=== PATIENT | female | born 1985 | race Caucasian/White ===

== ENCOUNTER 2016-09-19 09:26 | Outpatient (CLI) | payer MEDICAID ==
[~2016-09-19] VITALS: Ht 172.7 cm; Wt 83.2 kg
[~2016-09-19 09:26] MED LIST: BIRTH CONTROL
[2016-09-19 10:09] VITALS: BP 120/79
[2016-09-19] MEDS ORDERED: PREN1TAB25 PO (10:23)
== END 2016-09-19 10:42 | disposition home or self-care (01) ==
LOC: LDOP 09:26
PROVIDERS: ATTEND Obstetrics & Gynecology
DX: O26.893 Other specified pregnancy related conditions, third trimester (principal); R10.9 Unspecified abdominal pain; O36.8130 Decreased fetal movements, third trimester, not applicable or unspecified; O36.5930 Maternal care for other known or suspected poor fetal growth, third trimester, not applicable or unspecified; Z3A.37 37 weeks gestation of pregnancy
CPT/HCPCS: 59025; 99211; G0463

== ENCOUNTER 2016-09-29 06:05 | Inpatient (IN) | payer MEDICAID ==
[~2016-09-29] VITALS: Ht 172.7 cm; Wt 84.5 kg
[~2016-09-29 06:05] MED LIST changes: +PREN1TAB25 PO
[2016-09-29] MEDS ORDERED: OXYTOCIN 30U/ 0.9% NaCL 500ML 500 ML IV PRN (06:09)
[2016-09-29] MEDS: D5%-LACTATED RINGERS 1,000 ML IV SCH ×2 (06:09→14:09)
[2016-09-29] MEDS ORDERED: OXYTOCIN 30U/ 0.9% NaCL 500ML 500 ML IV ONE (06:09)
[2016-09-29] MEDS ORDERED: FENTANYL PF 100 MCG/2ML IVPush PRN (06:30)
[2016-09-29] MEDS ORDERED: CALCIUM CARBONATE 500 MG TAB.CHEW PO PRN ×2 (06:30→12:00)
[2016-09-29] MEDS ORDERED: ONDANSETRON 2MG/ML, 2ML IVPush PRN (06:30)
[2016-09-29] MEDS ORDERED: FENTANYL PF 100 MCG/2ML IV PRN (06:30)
[2016-09-29] MEDS: LACTATED RINGERS 1,000 ML IV SCH ×4 (06:34→16:54)
[2016-09-29] MEDS ORDERED: OXYTOCIN 30U/ 0.9% NaCL 500ML 500 ML ONE (06:40)
[2016-09-29] MEDS ORDERED: NEWBORN KIT ONE (06:40)
[2016-09-29] MEDS ORDERED: FENTANYL/BUPIV./NS/PF 250 ML EPIDCONT SCH (08:54)
[2016-09-29] MEDS ORDERED: FENTANYL/BUPIV./NS/PF 250 ML EPIDCONT ONE (08:56)
[2016-09-29] MEDS ORDERED: BUPIVACAINE/PF 0.25% ONE (08:56)
[2016-09-29] MEDS ORDERED: LACTATED RINGERS 1,000 ML IVBOLUS PRN (09:00)
[2016-09-29] MEDS ORDERED: EPHEDRINE 50 MG/ML, 1ML IVPush PRN (09:00)
[2016-09-29] MEDS ORDERED: NALOXONE 0.4 MG/ML, 1ML IVPush PRN (09:00)
[2016-09-29] MEDS ORDERED: LIDOCAINE 1%, 20ML ONE (10:13)
[2016-09-29] MEDS ORDERED: MISOPROSTOL 200 MCG TABLET ONE (10:13)
[2016-09-29] MEDS: OXYTOCIN 30U/ 0.9% NaCL 500ML 500 ML IV SCH ×2 (11:42→21:42)
[2016-09-29] MEDS ORDERED: OXYcodone IR 5MG TABLET PO PRN (12:00)
[2016-09-29] MEDS ORDERED: MISOPROSTOL 200 MCG TABLET PR PRN (12:00)
[2016-09-29] MEDS ORDERED: ONDANSETRON 2MG/ML, 2ML IV PRN (12:00)
[2016-09-29] MEDS ORDERED: RHOGAM FROM BLOOD BANK 1 NOTE EA IM/IV ONE (12:00)
[2016-09-29] MEDS ORDERED: OXYcodone/APAP 5/325MG TABLET PO PRN (12:00)
[2016-09-29 16:08] VITALS: BP 127/73
[2016-09-29] MEDS: IBUPROFEN 600 MG TABLET PO PRN (17:33)
[2016-09-29 19:30] VITALS: BP 132/73
[2016-09-30] MEDS: IBUPROFEN 600 MG TABLET PO PRN ×3 (00:07→14:02)
[2016-09-30 00:30] VITALS: BP 119/77
[2016-09-30] MEDS: LACTATED RINGERS 1,000 ML IV SCH (00:54)
[2016-09-30 04:15] VITALS: BP 116/74
[2016-09-30] MEDS: OXYTOCIN 30U/ 0.9% NaCL 500ML 500 ML IV SCH (07:42)
[2016-09-30 07:55] VITALS: BP 123/69
[2016-09-30] MEDS ORDERED: PRENATAL VIT/IRON/FA 1 EACH TABLET PO SCH (09:00)
[2016-09-30] MEDS ORDERED: IBUP-1222 PO (16:23)
[2016-09-30] MEDS ORDERED: OXYC-302 PO (16:25)
[2016-09-30] MEDS ORDERED: DOCU-30 PO (16:28)
== END 2016-09-30 18:00 | disposition home or self-care (01) | DRG 775 ==
LOC: LDIP 06:05 → 2NW 15:20
PROVIDERS: ADMIT Obstetrics & Gynecology; ATTEND Obstetrics & Gynecology
PROC: 10E0XZZ Delivery of Products of Conception, External Approach (ICD-10-PCS; principal; 2016-09-29)
PROC: 0KQM0ZZ Repair Perineum Muscle, Open Approach (ICD-10-PCS; 2016-09-29)
PROC: 00HU33Z Insertion of Infusion Device into Spinal Canal, Percutaneous Approach (ICD-10-PCS; 2016-09-29)
PROC: 3E0R3CZ (ICD-10-PCS; 2016-09-29)
PROC: 10907ZC Drainage of Amniotic Fluid, Therapeutic from Products of Conception, Via Natural or Artificial Opening (ICD-10-PCS; 2016-09-29)
DX: O36.5930 Maternal care for other known or suspected poor fetal growth, third trimester, not applicable or unspecified (principal); O71.4 Obstetric high vaginal laceration alone; Z37.0 Single live birth; O69.89X0 Labor and delivery complicated by other cord complications, not applicable or unspecified; O69.81X0 Labor and delivery complicated by cord around neck, without compression, not applicable or unspecified; O26.893 Other specified pregnancy related conditions, third trimester; Z67.11 Type A blood, Rh negative; Z88.0 Allergy status to penicillin; Z3A.39 39 weeks gestation of pregnancy
CPT/HCPCS: 36415; 85025; 85461; 86850; 86900; J2790; J2590; J3010; J7120

== ENCOUNTER 2016-11-09 21:23 | Inpatient (IN) | payer MEDICAID ==
[~2016-11-09] VITALS: Ht 172.7 cm; Wt 76.7 kg
[~2016-11-09 21:23] MED LIST changes: +DOCU-30 PO; +IBUP-1222 PO; +OXYC-302 PO
[2016-11-09 23:30] LABS: HCG UR OBC PASS
[2016-11-09 23:37] LABS: ASPARTATE AMINO TRANSFERASE 48 U/L (15-37); BLOOD UREA NITROGEN 22 mg/dL (7-18)
[2016-11-10] MEDS ORDERED: SODIUM CHLORIDE 0.9% 1,000ML IVBOLUS ONE
[2016-11-10] MEDS ORDERED: SODIUM CHLORIDE FLUSH 10ML SYR IVF ONE
[2016-11-10] MEDS ORDERED: OMNIPAQUE 350 MG/ML, 100ML BOTTLE ONE (00:35)
[2016-11-10] MEDS ORDERED: SODIUM CHLORIDE 0.9% 1,000 ML IV ONE (02:13)
[2016-11-10] MEDS ORDERED: SODIUM CHLORIDE FLUSH 10ML SYR IVF PRN (02:30)
[2016-11-10] MEDS ORDERED: CEFOTETAN PMX 1GM/50ML 50 ML IV ONE (02:30)
[2016-11-10] MEDS ORDERED: ONDANSETRON 2MG/ML, 2ML IVPush PRN ×3 (02:30→14:00)
[2016-11-10] MEDS ORDERED: MORPHINE SULFATE 4 MG/ML, 1ML IVPush PRN (02:30)
[2016-11-10] MEDS ORDERED: CEFOTETAN PMX 1GM/50ML 50 ML ONE (02:36)
[2016-11-10] MEDS ORDERED: morphine SULFATE 10 MG/ML, 1ML IVPush PRN (07:30)
[2016-11-10] MEDS ORDERED: D5%-0.45NACL+KCL 20MEQ 1,000 ML IV SCH (07:30)
[2016-11-10 08:33] VITALS: BP 109/73
[2016-11-10] MEDS ORDERED: BUPIVACAINE/PF-EPI 0.5% 1:200K ONE (13:28)
[2016-11-10] MEDS ORDERED: FENTANYL PF 250 MCG/5ML ONE (13:31)
[2016-11-10] MEDS ORDERED: MIDAZOLAM 1 MG/ML, 2ML ONE (13:32)
[2016-11-10] MEDS ORDERED: ACETAMINOPHEN 325 MG TABLET PO PRN (14:00)
[2016-11-10] MEDS ORDERED: LABETALOL 5MG/ML, 20ML IV PRN (14:00)
[2016-11-10] MEDS ORDERED: HYDROmorphone 1 MG/ML, 1ML IV PRN (14:00)
[2016-11-10] MEDS ORDERED: MIDAZOLAM 1 MG/ML, 2ML IV PRN (14:00)
[2016-11-10] MEDS ORDERED: ALBUTEROL/IPRATROPIUM 2.5MG/0.5MG, 3 ML NPPB PRN (14:00)
[2016-11-10] MEDS ORDERED: hydrALAzine 20 MG/ML, 1ML IV PRN (14:00)
[2016-11-10] MEDS ORDERED: OXYcodone 5 MG/5 ML ORAL.SOL UDC PO PRN (14:00)
[2016-11-10] MEDS ORDERED: MEPERIDINE/PF 25MG/0.5ML IVPush PRN (14:00)
[2016-11-10] MEDS ORDERED: PROMETHAZINE 25 MG/ML, 1ML IV PRN (14:00)
[2016-11-10] MEDS ORDERED: ACETAMINOPHEN 650 MG/20.3 ML UDC ONE (14:30)
[2016-11-10] MEDS ORDERED: OXYcodone 5 MG/5 ML ORAL.SOL UDC ONE (14:30)
[2016-11-10] MEDS ORDERED: ACETAMINOPHEN 325 MG TABLET ONE (14:30)
[2016-11-10] MEDS ORDERED: CEFOTETAN PMX 1GM/50ML 50 ML IV SCH (14:30)
[2016-11-10] MEDS ORDERED: MEPERIDINE/PF 25MG/0.5ML ONE (14:48)
[2016-11-10] MEDS ORDERED: FENTANYL PF 100 MCG/2ML ONE (15:03)
[2016-11-10] MEDS: FENTANYL PF 100 MCG/2ML IV PRN ×2 (15:04→15:20)
[2016-11-10 15:50] VITALS: BP 102/66
[2016-11-10] MEDS ORDERED: ONDANSETRON 2MG/ML, 2ML ONE (16:58)
[2016-11-10] MEDS ORDERED: SUCCINYLCHOLINE 20 MG/ML, 10ML ONE (16:58)
[2016-11-10] MEDS ORDERED: DEXAMETHASONE 4 MG/ML, 1ML ONE (16:58)
[2016-11-10] MEDS ORDERED: CEFOTETAN 1 GM ONE (16:58)
[2016-11-10] MEDS ORDERED: PROPOFOL 10 MG/ML, 20ML ONE (16:58)
[2016-11-10] MEDS ORDERED: KETOROLAC 30 MG/1 ML ONE (16:58)
[2016-11-10] MEDS ORDERED: OXYcodone/APAP 5/325MG TABLET PO PRN (17:30)
[2016-11-10 20:10] VITALS: BP 112/70
[2016-11-11] MEDS ORDERED: ENOXAPARIN 40 MG/0.4 ML SQ SCH (12:00)
== END 2016-11-10 20:15 | disposition home or self-care (01) | DRG 329 ==
LOC: ED 23:59 → EDIP 11-10 02:13 → 4NOR 11-10 02:50
PROVIDERS: ADMIT Surgery; ATTEND Surgery
PROC: 0DBN4ZZ Excision of Sigmoid Colon, Percutaneous Endoscopic Approach (ICD-10-PCS; 2016-11-10)
PROC: 0WBF4ZZ Excision of Abdominal Wall, Percutaneous Endoscopic Approach (ICD-10-PCS; 2016-11-10)
PROC: 0DTJ4ZZ Resection of Appendix, Percutaneous Endoscopic Approach (ICD-10-PCS; principal; 2016-11-10 13:30)
DX: K35.80 Unspecified acute appendicitis (principal); K55.049 Acute infarction of large intestine, extent unspecified; Z88.0 Allergy status to penicillin
CPT/HCPCS: 36415; 74177; 76830; 80053; 81001; 81025; 83690; 85025; 87086; 88304; 96361; 96374; J1100; J1885; J2175; J2250; J2405; J2704; J3010; Q9967; J0330; J3480; J7030; S0074